=== PATIENT | female | born 1975 | race Caucasian/White ===

== ENCOUNTER 2017-12-04 15:32 | Emergency (ER) | payer SELFPAY, OTHER | END 2017-12-04 16:40 | disposition home or self-care (01) | LOC: ERS 15:32 | DX: R05 Cough (principal); G47.30 Sleep apnea, unspecified; I10 Essential (primary) hypertension; F41.9 Anxiety disorder, unspecified; F32.9 Major depressive disorder, single episode, unspecified; Z79.899 Other long term (current) drug therapy | CPT/HCPCS: 99283 ==

== ENCOUNTER 2018-04-29 10:38 | Emergency (ER) | payer SELFPAY ==
[2018-04-29 10:56] LABS: Bilirubin Negative (Negative); Blood, Urine Small (Negative); Clarity TURBID (Clear); Glucose, Urine (Dipstick) Negative (Negative); Leukocyte Large (Negative); Nitrite Negative (Negative); Protein, Urine (Dipstick) 100 mg/dL (Neg-Trace); Specific Gravity, Urine 1.023 (1.002-1.036)
[2018-04-29 10:57] LABS: Bacteria/HPF 3+ HPF (None Seen); Hyaline Casts/LPF 4-6 HYALINE CAST LPF (0-3 Hyaline); Pathc Cast-AUWi Flag 0.87 (0-2.49); Squamous Epithelial 0-3 HPF (0-3)
[2018-04-29 11:03] LABS: #Eosinphils 0.2 thou/uL (0.0-0.7); #Lymphocytes 2.4 thou/uL (1.20-3.40); #Monocytes 0.5 thou/uL (0.11-0.59); #Neutrophils 3.2 thou/uL (1.40-6.50); %Basophils 0.3 % (0.0-1.0); %Lymphocytes 37.8 % (21.0-51.0); %Monocytes 8.4 % (0.0-10.0); %Neutrophils 50.5 % (42.0-75.0); Hemoglobin 12.8 g/dL (12.0-16.0); Mean Corpuscular HGB CONC 33.2 g/dL (32.0-36.0); Mean Corpuscular Hemoglobin 29.9 pg (27.0-31.0); Mean Platelet Volume 6.5 fL (7.4-10.4); Platelet Count 354 thou/uL (130-400); RBC Distribution Width 12.5 % (11.5-14.5); Red Blood Cell (RBC) Count 4.28 mill/uL (4.20-5.40); White Blood Cell (WBC) Count 6.2 thou/uL (4.8-10.8)
== END 2018-04-29 11:27 | disposition home or self-care (01) ==
LOC: ERS 10:38
DX: N30.00 Acute cystitis without hematuria (principal); G47.30 Sleep apnea, unspecified; I10 Essential (primary) hypertension; F41.9 Anxiety disorder, unspecified; F32.9 Major depressive disorder, single episode, unspecified; Z79.899 Other long term (current) drug therapy
CPT/HCPCS: 36415; 81003; 81015; 85025; 87077; 87086; 87186; 99283

== ENCOUNTER 2018-11-12 15:37 | Emergency (ER) | payer SELFPAY ==
--- NOTE | 2018-11-12 17:19 | RAD ---
RIGHT FOOT THREE VIEWS: 11/12/18 HISTORY: Knot on plantar aspect of the foot onset yesterday. Postoperative changes are seen of the first metatarsal head. Surgical screw is present in this region . I do not see any signs of any acute bony change. The lateral sesamoid on these views appears to hav e partially fused to the metatarsal head. All these changes appear chronic. IMPRESSION: Postoperative changes of the first metatarsal. No definite acute change. POS: TYLER
== END 2018-11-12 17:48 | disposition home or self-care (01) ==
LOC: ERS 15:37
DX: L84 Corns and callosities (principal); M79.671 Pain in right foot; G47.30 Sleep apnea, unspecified; I10 Essential (primary) hypertension; F41.9 Anxiety disorder, unspecified; F32.9 Major depressive disorder, single episode, unspecified

== ENCOUNTER 2019-09-08 11:35 | Emergency (ER) | payer SELFPAY ==
--- NOTE | 2019-09-08 12:19 | RAD ---
XR Foot Lt 3 View STANDARD: 09/08/2019 11:55 AM CLINICAL INDICATION: Pain COMPARISON: None. FINDINGS: There is persistent hyperextension of the MTP joints and flexion of the digits, which limits visualiz ation. Fracture:No fracture. Arthropathy:Scattered mild degenerative change. Chronic malalignment of the first ray. Incidental findings:Postoperative screw at the distal first metatarsal. IMPRESSION: 1. No acute osseous abnormality.
== END 2019-09-08 12:55 | disposition home or self-care (01) ==
LOC: ERS 11:35
DX: S90.32XA Contusion of left foot, initial encounter (principal); I10 Essential (primary) hypertension; G47.30 Sleep apnea, unspecified; F41.9 Anxiety disorder, unspecified; F32.9 Major depressive disorder, single episode, unspecified; Z79.899 Other long term (current) drug therapy; W18.2XXA Fall in (into) shower or empty bathtub, initial encounter
CPT/HCPCS: 93005

== ENCOUNTER 2019-09-30 18:51 | Emergency (ER) | payer SELFPAY ==
[2019-09-30 19:11] LABS: Clarity Clear (Clear); Glucose, Urine (Dipstick) Normal (Negative); Leukocyte 500 Leu/uL (Negative); Nitrite Negative (Negative); Protein, Urine (Dipstick) 30 mg/dL (Neg-Trace); Urobilinogen 6 mg/dL (Less than 2)
[2019-09-30 19:12] LABS: Bilirubin Negative (Negative); Blood, Urine 2+ (Negative); RBC/HPF 21-50 HPF (0-3); WBC/HPF Greater than 50 HPF (0-3)
[2019-09-30 19:13] LABS: Bacteria/HPF 1+ HPF (None Seen)
== END 2019-09-30 19:30 | disposition home or self-care (01) ==
LOC: ERS 18:51
DX: N30.01 Acute cystitis with hematuria (principal); G47.30 Sleep apnea, unspecified; I10 Essential (primary) hypertension; F41.9 Anxiety disorder, unspecified; F32.9 Major depressive disorder, single episode, unspecified; Z79.899 Other long term (current) drug therapy
CPT/HCPCS: 81003; 81015; 87077; 87086; 99283

== ENCOUNTER 2019-10-11 15:21 | Emergency (ER) | payer SELFPAY ==
[2019-10-11 16:27] LABS: Bilirubin Negative (Negative); Blood, Urine 2+ (Negative); Clarity Turbid (Clear); Glucose, Urine (Dipstick) Normal (Negative); Leukocyte 500 Leu/uL (Negative); Nitrite Negative (Negative); Protein, Urine (Dipstick) 50 mg/dL (Neg-Trace); Urobilinogen 3 mg/dL (Less than 2); WBC/HPF Greater than 50 HPF (0-3)
[2019-10-11 16:42] LABS: Bacteria/HPF Rare-Few HPF (None Seen)
[2019-10-11 16:43] LABS: Mucous/LPF 2+ LPF (<2+)
[2019-10-11 16:44] LABS: Urine Culture Reflex No No
== END 2019-10-11 20:16 | disposition left against medical advice (07) ==
LOC: ERS 15:21
DX: Z53.21 Procedure and treatment not carried out due to patient leaving prior to being seen by health care provider (principal)
CPT/HCPCS: 81001

== ENCOUNTER 2019-10-15 07:49 | Emergency (ER) | payer SELFPAY ==
[2019-10-15 08:53] LABS: Bacteria/HPF None Seen HPF (None Seen); Bilirubin Negative (Negative); Blood, Urine 2+ (Negative); Clarity Turbid (Clear); Glucose, Urine (Dipstick) Normal (Negative); Leukocyte 500 Leu/uL (Negative); Nitrite Negative (Negative); Protein, Urine (Dipstick) 50 mg/dL (Neg-Trace); RBC/HPF 21-50 HPF (0-3); Squamous Epithelial 0-3 HPF (0-3); Urobilinogen Normal mg/dL (Less than 2); WBC/HPF Greater than 50 HPF (0-3)
== END 2019-10-15 09:17 | disposition home or self-care (01) ==
LOC: ERS 07:49
DX: N30.01 Acute cystitis with hematuria (principal); F32.9 Major depressive disorder, single episode, unspecified
CPT/HCPCS: 81003; 81015; 87077; 87086; 99283

== ENCOUNTER 2019-11-08 11:22 | Emergency (ER) | payer SELFPAY ==
[2019-11-08 11:52] LABS: Bilirubin Negative (Negative); Blood, Urine Large (Negative); Glucose, Urine (Dipstick) Negative (Negative); Leukocyte Trace (Negative); Nitrite Negative (Negative); Protein, Urine (Dipstick) 100 mg/dL (Neg-Trace); Urobilinogen 0.2 mg/dL (Less than 2)
[2019-11-08 11:54] LABS: Clarity Turbid (Clear)
[2019-11-08 12:05] LABS: RBC/HPF Greater than 50 HPF (0-3)
[2019-11-08 12:06] LABS: Bacteria/HPF None Seen HPF (None Seen); Squamous Epithelial 0-3 HPF (0-3)
[2019-11-08] MEDS ORDERED: Lidocaine 1% PF 5 ML VIAL ONE (13:14)
[2019-11-08] MEDS ORDERED: cefTRIAXone\\ROCEPHIN 1 GM VIAL ONE (13:14)
== END 2019-11-08 13:30 | disposition home or self-care (01) ==
LOC: ERS 11:22
DX: R30.0 Dysuria (principal); R31.9 Hematuria, unspecified; F41.9 Anxiety disorder, unspecified; F32.9 Major depressive disorder, single episode, unspecified
CPT/HCPCS: 81003; 81015; 87086; 96372; 99283; J0696; J2001

== ENCOUNTER 2019-11-30 14:47 | Emergency (ER) | payer SELFPAY ==
[2019-11-30] MEDS ORDERED: Dexamethasone 4 MG TAB ONE (15:24)
--- NOTE | 2019-11-30 16:12 | RAD ---
TWO VIEWS CHEST: 11/30/19 PROVIDED CLINICAL HISTORY: Cough. FINDINGS: Comparison 07/07/13. The cardiac and mediastinal silhouette is within normal limits. No focal consoli dation, pleural fluid or pneumothorax apparent. IMPRESSION: No evidence for an acute cardiopulmonary process. POS: TPC
== END 2019-11-30 16:15 | disposition home or self-care (01) ==
LOC: ERS 14:47
DX: J20.9 Acute bronchitis, unspecified (principal); F41.9 Anxiety disorder, unspecified; F32.9 Major depressive disorder, single episode, unspecified
CPT/HCPCS: 71046; 87804; 94640; J7620; J8540

== ENCOUNTER 2019-12-21 05:22 | Emergency (ER) | payer SELFPAY | END 2019-12-21 06:11 | disposition home or self-care (01) | LOC: ERS 05:22 | DX: F15.951 Other stimulant use, unspecified with stimulant-induced psychotic disorder with hallucinations (principal); F41.9 Anxiety disorder, unspecified; F32.9 Major depressive disorder, single episode, unspecified; F17.210 Nicotine dependence, cigarettes, uncomplicated; Z79.899 Other long term (current) drug therapy | CPT/HCPCS: 99281 ==

== ENCOUNTER 2020-01-30 22:31 | Emergency (ER) | payer SELFPAY ==
--- NOTE | 2020-01-31 07:52 | RAD ---
4 views of lumbar spine: 01/31/2020 COMPARISON: None HISTORY: Back pain, history of prior lumbar spine surgery FINDINGS: Bilateral pedicle screws are present at the L5 and S1 levels with vertically oriented inter locking rods. There is approximately 9 mm of anterolisthesis of L5 on S1. There is disc space narrowing and degener ative endplate change at the L5-S1 level as well. No evidence for hardware failure. No acute fracture or evidence of dislocation is seen. IMPRESSION: Postoperative and degenerative change within the lumbar spine as detailed above.
== END 2020-01-31 01:45 | disposition home or self-care (01) ==
LOC: ERS 22:31
DX: M54.5 Low back pain (principal); K59.00 Constipation, unspecified; F41.9 Anxiety disorder, unspecified; F32.9 Major depressive disorder, single episode, unspecified
CPT/HCPCS: 72100

== ENCOUNTER 2020-03-06 18:51 | Emergency (ER) | payer SELFPAY ==
[2020-03-06] MEDS ORDERED: Ketorolac Tromethamine 30 MG/ML VIAL ONE (19:13)
--- NOTE | 2020-03-06 21:08 | RAD ---
LUMBAR SPINE RADIOGRAPHS THREE VIEWS: 03/06/20 PROVIDED CLINICAL HISTORY: Injury. FINDINGS: Comparison 01/31/20. Five nonribbearing lumbar type vertebral bones are redemonstrated. Lumbar alignment is unchanged. Lupillo tebral body heights appear preserved. There is cortical irregularity involving the anterior margin of the L2 vertebral bodies suspicious for fracture. Postoperative changes at L5-S1 is redemonstrated, a ppearing similar. IMPRESSION: Findings suspicious for minimal end plate compression fracture involving L2. POS: ELIO
== END 2020-03-06 21:32 | disposition home or self-care (01) ==
LOC: ERS 18:51
DX: M54.5 Low back pain (principal); F41.9 Anxiety disorder, unspecified; F32.9 Major depressive disorder, single episode, unspecified; Z79.899 Other long term (current) drug therapy; W18.30XA Fall on same level, unspecified, initial encounter
CPT/HCPCS: 72100; 96372; J1885

== ENCOUNTER 2020-05-30 18:15 | Emergency (ER) | payer SELFPAY ==
[2020-05-30] MEDS ORDERED: Ketorolac Tromethamine 30 MG/ML VIAL ONE (18:27)
== END 2020-05-30 18:45 | disposition home or self-care (01) ==
LOC: ERS 18:15
DX: K04.7 Periapical abscess without sinus (principal); K02.9 Dental caries, unspecified; F41.9 Anxiety disorder, unspecified; F32.9 Major depressive disorder, single episode, unspecified; Z79.899 Other long term (current) drug therapy
CPT/HCPCS: 96372; 99282; J1885

== ENCOUNTER 2020-07-15 11:19 | Emergency (ER) | payer SELFPAY ==
[2020-07-15 12:05] LABS: Bacteria/HPF 4+ HPF (None Seen); Bilirubin Negative (Negative); Blood, Urine Trace (Negative); Clarity Turbid (Clear); Glucose, Urine (Dipstick) Normal (Negative); Ketone, Urine Trace mg/dL (Negative); Leukocyte 500 Leu/uL (Negative); Nitrite 2+ (Negative); Protein, Urine (Dipstick) 20 mg/dL (Neg-Trace); Specific Gravity, Urine 1.029 (1.002-1.036); Squamous Epithelial 0-3 HPF (0-3); Urobilinogen Normal mg/dL (Less than 2); WBC/HPF Greater than 50 HPF (0-3)
== END 2020-07-15 12:36 | disposition home or self-care (01) ==
LOC: ERS 11:19
DX: N39.0 Urinary tract infection, site not specified (principal); F41.9 Anxiety disorder, unspecified; F32.9 Major depressive disorder, single episode, unspecified; Z79.899 Other long term (current) drug therapy
CPT/HCPCS: 81003; 81015; 99283

== ENCOUNTER 2020-07-25 08:42 | Observation (INO) | payer BC, OTHER, SELFPAY ==
[2020-07-25 10:11] LABS: #Basophils 0.1 thou/uL (0.0-0.2); #Eosinphils 0.1 thou/uL (0.0-0.7); #Lymphocytes 2.3 thou/uL (1.20-3.40); #Monocytes 0.7 thou/uL (0.11-0.59); #Neutrophils 5.9 thou/uL (1.40-6.50); %Basophils 0.7 % (0.0-1.0); %Eosinophils 1.4 % (0.0-10.0); %Lymphocytes 25.8 % (21.0-51.0); %Monocytes 7.2 % (0.0-10.0); %Neutrophils 64.9 % (42.0-75.0); Hemoglobin 12.6 g/dL (12.0-16.0); Mean Corpuscular HGB CONC 34.1 g/dL (32.0-36.0); Mean Corpuscular Hemoglobin 31.4 pg (27.0-31.0); Mean Corpuscular Volume 91.8 fL (78.0-98.0); Mean Platelet Volume 6.9 fL (7.4-10.4); Platelet Count 372 thou/uL (130-400); RBC Distribution Width 12.3 % (11.5-14.5); Red Blood Cell (RBC) Count 4.02 mill/uL (4.20-5.40); White Blood Cell (WBC) Count 9.1 thou/uL (4.8-10.8)
[2020-07-25 10:27] LABS: ALT (SGPT) 47 U/L (8-55); AST (SGOT) 49 U/L (5-34); Albumin 4.4 g/dL (3.5-5.0); Alkaline Phosphatase 74 U/L (40-110); Anion Gap 13 mmol/L (10-20); BUN (Urea Nitrogen) 13 mg/dL (7.0-18.7); Bilirubin, Total 0.7 mg/dL (0.2-1.2); Calc. Creatinine Clearance 0 mL/min (70-130); Calcium 9.4 mg/dL (7.8-10.44); Carbon Dioxide 26 mmol/L (22-29); Chloride 104 mmol/L (98-107); Estimated GFR-MDRD 48; Globulin 2.4 g/dL (2.4-3.5); Glucose 95 mg/dL (70-105); Potassium 3.5 mmol/L (3.5-5.1); Protein, Total 6.8 g/dL (6.0-8.3); Sodium 139 mmol/L (136-145)
[2020-07-25 10:32] LABS: Acetaminophen Less than 6.0 mcg/mL (10.0-30.0); Alcohol Less than 10 mg/dL (Less than 10); Salicylate Less than 8.0 mg/dL (15.0-30.0)
--- NOTE | 2020-07-25 10:43 | CT ---
CT BRAIN WITHOUT CONTRAST: HISTORY: Level II stroke. FINDINGS: No evidence of acute infarct, hemorrhage, midline shift, or abnormal extraaxial fluid collection is s een. The ventricular size is normal and the basilar cisterns patent. The bony calvarium is intact. The visualized paranasal sinuses and mastoid air cells are well aerated. IMPRESSION: No CT evidence of acute intracranial process. Discussed over the telephone with Kameron Francois of the emergency room at 10:35 a.m. CODE CR POS: OFF
[2020-07-25 10:56] LABS: CKMB 5.1 ng/mL (0-6.6)
--- NOTE | 2020-07-25 11:20 | CT ---
CTA HEAD WITH IV CONTRAST AND 3D POSTPROCESSING CTA NECK WITH IV CONTRAST AND 3D POSTPROCESSING: Date: 07/25/2020 HISTORY: Level II stroke. Speech difficulties. FINDINGS/IMPRESSION: There is good flow in the vertebrobasilar and carotid artery systems in the neck and head without lavern dence of significant stenosis, major branch occlusion, or aneurysm formation. Discussed over the telephone with Rose Raymundo in the ER at 1109 hours. CODE CR. POS: OFF
[2020-07-25 11:31] LABS: Bacteria/HPF 4+ HPF (None Seen); Bilirubin Negative (Negative); Clarity Clear (Clear); Glucose, Urine (Dipstick) Normal (Negative); Ketone, Urine Negative (Negative); Leukocyte 250 Leu/uL (Negative); Nitrite 2+ (Negative); Protein, Urine (Dipstick) 30 mg/dL (Neg-Trace); Squamous Epithelial 0-3 HPF (0-3); Urobilinogen 3 mg/dL (Less than 2); WBC/HPF 21-50 HPF (0-3)
[2020-07-25 11:34] LABS: Blood, Urine Trace (Negative)
[2020-07-25 11:42] LABS: Amphetamine Detected (NotDetected); Barbiturates Screen Not Detected (NotDetected); Benzodiazepine Screen Not Detected (NotDetected); Cocaine Metabolite Screen Not Detected (NotDetected); Medtox Control Line Valid? VALID (VALID); Medtox Reader # READER 1; Methadone Not Detected (NotDetected); Methamphetamine Detected (NotDetected); Opiate Screen Not Detected (NotDetected); Oxycodone Screen Not Detected (NotDetected); Phencyclidine (PCP) Not Detected (NotDetected); THC/Cannabinoid Screen Not Detected (NotDetected); Tricyclic Screen Not Detected (NotDetected)
[2020-07-25] MEDS ORDERED: cefTRIAXone\\ROCEPHIN 1 GM VIAL ONE (12:28)
[2020-07-25] MEDS ORDERED: Lorazepam 2 MG/ML VIAL ONE (12:46)
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
[2020-07-25] MEDS ORDERED: Iopamidol-370 76% 500 ML 1 ML ONE (13:26)
[2020-07-25] MEDS ORDERED: Lactated Ringer's 1,000 ML IV SCH (14:00)
[2020-07-25] MEDS ORDERED: Calcium Carbonate 500 MG ChewTAB PO PRN (14:33)
[2020-07-25] MEDS ORDERED: Acetaminophen 325 MG TAB PO PRN (14:33)
[2020-07-25] MEDS ORDERED: Ondansetron ODT 4 MG TAB PO PRN (14:33)
--- NOTE | 2020-07-25 14:44 | PDOC.FPRHP ---
- History of Present Illness Chief Complaint: AMS History of Present Illness: 45F presents to the ED with c/o AMS per her daughter. Pt also reports difficulty speaking as she states that her tongue feels thick. Pt reports hx of meth use, last used last night. States she only took a little, but was hitting meth from 10pm to 5am. Patient reported to nurse she took 4 or 5 "hits" of meth. Denies other drug or alcohol use. Pt denies any hx of CVA or other medical problems. Patient states that she does have dysuria, and urinary frequency, denies hematuria. Denies chest pain, shortness of breath, nausea and vomiting. ED Course: given 1gm ativan in ED, ceftriaxone in ED - Allergies/Adverse Reactions Allergies Allergy/AdvReac Type Severity Reaction Status Date / Time No Known Allergies Allergy Unverified 07/25/20 14:17 - History PMHx: Anxiety and Depression PSHx: Csection x2, hysterectomy back surgery FHx: non-significant Social: no cigarette smoking, reports meth use but no other drugs, no alcohol - Review of Systems General: denies: fever/chills, weight/appetite/sleep changes Eyes: denies: eye pain, vision changes Respiratory: denies: cough, congestion, shortness of breath Cardiovascular: denies: chest pain, palpitation Gastrointestinal: denies: nausea, vomiting, diarrhea Genitourinary: reports: dysuria, polyuria Skin: denies: rashes Musculoskeletal: reports: pain (chronic pain in back and feet) Neurological: reports: other (slurred speech) Psychological: reports: anxiety, depression - Vital signs BP: 134/75, HR 94, RR 18, 98.2F, 98 on RA, Wt 63.5kg - Physical Exam Constitutional: NAD -Constitutional: small stature, agitated, restless HEENT: normocephalic and atraumatic, other (pupils dilated) Neck: supple, FROM Heart: RRR, no murmurs/rubs/gallops Lungs: CTAB, no respiratory distress Abdomen: soft, non-tender, bowel sounds present Musculoskeletal: normal structure, normal tone Neurological: no focal deficit, CN II-XII intact, normal sensation -Neurological: slurred speech, sleepy Skin: no rash/lesions Heme/Lymphatic: no unusual bruising or bleeding, no purpura Additional comment: A&O x 3 FMR H&P: Results - Labs Result Diagrams: 07/25/20 10:00 07/25/20 10:00 Lab results: WBC 9.1 thou/uL (4.8-10.8) 07/25/20 10:00 Hgb 12.6 g/dL (12.0-16.0) 07/25/20 10:00 Hct 36.9 % (36.0-47.0) 07/25/20 10:00 MCV 91.8 fL (78.0-98.0) 07/25/20 10:00 Plt Count 372 thou/uL (130-400) 07/25/20 10:00 Neutrophils % 64.9 % (42.0-75.0) 07/25/20 10:00 Sodium 139 mmol/L (136-145) 07/25/20 10:00 Potassium 3.5 mmol/L (3.5-5.1) 07/25/20 10:00 Chloride 104 mmol/L (98-107) 07/25/20 10:00 Carbon Dioxide 26 mmol/L (22-29) 07/25/20 10:00 BUN 13 mg/dL (7.0-18.7) 07/25/20 10:00 Creatinine 1.21 mg/dL (0.6-1.1) H 07/25/20 10:00 Glucose 95 mg/dL (70-105) 07/25/20 10:00 Calcium 9.4 mg/dL (7.8-10.44) 07/25/20 10:00 Total Bilirubin 0.7 mg/dL (0.2-1.2) 07/25/20 10:00 AST 49 U/L (5-34) H 07/25/20 10:00 ALT 47 U/L (8-55) 07/25/20 10:00 Alkaline Phosphatase 74 U/L (40-110) 07/25/20 10:00 Ammonia 22 umol/L (18-72) 07/25/20 11:12 CK-MB (CK-2) 5.1 ng/mL (0-6.6) 07/25/20 10:00 Serum Total Protein 6.8 g/dL (6.0-8.3) 07/25/20 10:00 Albumin 4.4 g/dL (3.5-5.0) 07/25/20 10:00 Urine Ketones Negative mg/dL (Negative) 07/25/20 11:08 Urine Blood Trace (Negative) A 07/25/20 11:08 Urine Nitrite 2+ (Negative) A 07/25/20 11:08 Ur Leukocyte Esterase 250 Cynthia/uL (Negative) A 07/25/20 11:08 Urine RBC 7-10 HPF (0-3) A 07/25/20 11:08 Urine WBC 21-50 HPF (0-3) A 07/25/20 11:08 Ur Squamous Epith Cells 0-3 HPF (0-3) 07/25/20 11:08 Urine Bacteria 4+ HPF (None Seen) A 07/25/20 11:08 - EKG Interpretation EKG: SR 85 - Radiology Interpretation CT scan - head Status: report reviewed by me (no acute intracranial process) CT scan - chest Status: report reviewed by me (CTA showed no acute cradiopulmonary process) FMR H&P: A/P - Plan Acute Toxic Encephalopathy 2/2 Methamphetamines Multiple hits of meth reported overnight UDS + methamphetamines, ETOH, ASA negative CTA and CT negative Neuro exam showed slurred speech, otherwise no focal deficits CN II-XII intact - will monitor for improvements of mental status/slurred speech - Hepatitis panel, RPR, HIV pending - admit stroke/obs UTI +dysruia, +frequency UA: UA 4+ bacteria, WBC, LE, nitrites, trace blood Ceftriaxone started in the ED - will continue - mIVFs @ 120 - UCx ordered Elevated Troponins, likely 2/2 Drug Toxicity Trops negative x2 - will continue to trend PCP: None CC Diet: Regular after bedside swallow Code: Full VTE: SCDs FMR H&P: Upper Level - Pertinent history 45yo F with h/o anxiety, depression, and methamphetamine abuse presents for AMS by daughter. Patient is unable to provide much history due to mentation. States she uses meth but wont provide details. Denies any CP, SOB, n/v, abd klein, fever /chills. Per ED documentation, has been living with daughter but told PD she took 4-5 hits of meth prior to presentation. In ED, pt was given 1L NS, Rocephin, and 1mg Ativan. CT Head and CTA head and neck negative. UDS + meth. UA 4+ bacteria, WBC, LE, nitrites, trace blood. Cr 1.2. Trop 0.035. Admitted for acute metabolic encaphlopathy, elevated trop, and UTI. - Pertinent findings See internet developer note for full PMHx/PMSx/Social/Family history. BP: 133/95, Pulse: 102, Resp: 20, Temp: 98.4 (Oral), Pain: 0, O2 sat: 99 on ( Room Air), General: Agitated, restless, does not make eye contact HEENT: Dilated pupils, EMOI, PERRLA, trachea midline Cards: RRR without murmur Pulm: CTAB GI: Soft, nontender, nondistended, normoactive bowel sounds Neuro: 5/5 strength throughout, normal sensation, slurred/muffled speech, CN II- XII intact - Plan Date/Time: 07/25/20 1443 I, Anthony Vargas MD, have evaluated this patient and agree with findings/plan as outlined by internet developer resident. Pertinent changes/additions are listed here. 45yo F with h/o anxiety, depression, and methamphetamine abuse presents for acute toxic encephalopathy 2/2 methamphetamine # Acute toxic encephalopathy 2/2 methamphetamine -CTA/CT negative, neuro exam unremarkable other than slurred speech which is suspected 2/2 acute intoxication, will monitor -UDS + methamphetamine. EtOH/APAP/ASA negative. -Admitted to ED staff used meth recently -History of meth abuse -Will monitor mental status # UTI -UA: UA 4+ bacteria, WBC, LE, nitrites, trace blood. -s/p Rocephin in ED, will cont and follow UCx #Elevated trop -Suspected 2/2 drug abuse, no EKG changes or chest pain -Trop negative x2 See internet developer note for management of chronic medical conditions. PCP: None CC IVF: LR @ 120cc/hr Diet: Regular after bedside swallow Code: Full VTE: SCDs Dispo: Admit to tele obs for acute toxic encephalopathy 2/2 acute methamphetamine intoxication. Will monitor and IVF. Anticipate LOS <48hrs. Addendum - Attending - Attending Attestation Date/Time: 07/25/20 5811 I personally evaluated the patient and discussed the management with Dr. Franco/ Sam. I agree with the History, Examination, Assessment and Plan documented above with any addition or exceptions noted below. Patient here with toxic encephalopathy 2/2 meth abuse. Her mentation has improved. Will continue to monitor vitals and labs and ensure her symptoms resolve. She has no focal findings to suggest central pathology at this time.
[2020-07-25] MEDS: Lactated Ringer's 1,000 ML IV SCH (16:32)
[2020-07-25 16:41] VITALS: BMI 20.7
[2020-07-25 17:02] LABS: Troponin I 0.027 ng/mL (< 0.028)
[2020-07-25 17:16] LABS: HBSAB Concentration Less than 8.00 mIU/mL; HIV (1/2) Antibody/Antigen Non-Reactive (NonReactive); HIV 1/2 INDEX 0.12 S/CO (<1.00); Hep B Surf AB Non-Reactive (NonReactive); Hep C IgG Ab Non-Reactive (NonReactive); Hep C Index 0.06 S/CO (0-0.79)
[2020-07-25 17:23] LABS: Syphilis Antibody Nonreactive (Nonreactive); Syphilis Antibody Index 0.03 S/CO (<1.00 Non-Reactive)
[2020-07-26] MEDS: Lactated Ringer's 1,000 ML IV SCH ×2 (01:15→11:28)
--- NOTE | 2020-07-26 05:20 | PDOC.FM ---
- Subjective Subjective: Patient is resting comfortably in bed. States that she feels much better and her speech is back to normal. No other complaints. - Objective MAR Reviewed: Yes Vital Signs & Weight: Vital Signs (12 hours) Temp Pulse Resp BP Pulse Ox 07/26/20 04:15 97.6 F 62 14 119/70 100 07/25/20 23:37 97.7 F 57 L 14 105/61 99 07/25/20 20:57 97.8 F 95 14 141/80 H 99 07/25/20 18:46 96 Weight Weight 63.503 kg I&O: 07/24/20 07/25/20 07/26/20 06:59 06:59 06:59 Intake Total 120 Balance 120 Result Diagrams: 07/25/20 10:00 07/25/20 10:00 Phys Exam - Physical Examination Constitutional: NAD thin stature HEENT: PERRLA, moist MMs poor denitition Respiratory: no wheezing, clear to auscultation bilateral Cardiovascular: RRR, no significant murmur Gastrointestinal: soft, non-tender, positive bowel sounds Musculoskeletal: no edema, pulses present Neurological: non-focal, normal sensation, moves all 4 limbs Psychiatric: A&O x 3 Skin: no rash Dx/Plan (1) Toxic encephalopathy Code(s): G92 - TOXIC ENCEPHALOPATHY Status: Acute (2) UTI (urinary tract infection) Status: Acute - Plan Plan: Acute Toxic Encephalopathy 2/2 Methamphetamines Multiple hits of meth reported overnight UDS + methamphetamines, ETOH, ASA negative CTA and CT negative Neuro exam showed slurred speech, otherwise no focal deficits CN II-XII intact Hepatitis panel, RPR, HIV: neg Hep B Antibody nonreactive - slurred speech improved - will vaccinate for Hep B UTI +dysruia, +frequency UA: UA 4+ bacteria, WBC, LE, nitrites, trace blood 1 dose Rocephin adequate treatment - mIVFs @ 120 - UCx ordered, will call if additional abx necessary Elevated Troponins, likely 2/2 Drug Toxicity Trops negative x3 PCP: None CC Diet: Regular Diet Code: Full VTE: SCDs Addendum - Attending - Attending Attestation Date/Time: 07/26/20 1106 I personally evaluated the patient and discussed the management with Dr. Franco. I agree with the History, Examination, Assessment and Plan documented above with any addition or exceptions noted below. Patient back to baseline. S/p encephalopathy from Meth intoxication. Stable for discharge. S/p treatment for UTI.
[2020-07-26] MEDS ORDERED: Recombivax (HEP-B) 5 MCG/0.5 ML VIAL IM ONE (08:34)
[2020-07-26] MEDS ORDERED: Gentamicin Sulfate 100 MG in Premix Bag 1 BAG IVPB SCH (10:00)
[2020-07-26 12:21] VITALS: BP 126/74; TEMP 98.3
[2020-07-26] MEDS ORDERED: cefTRIAXone\\ROCEPHIN 1 GM in Sodium Chloride 0.9% 100 ML IVPB SCH (13:00)
--- NOTE | 2020-07-27 02:03 | DIS ---
DATE OF ADMISSION: 07/25/2020 DATE OF DISCHARGE: 07/26/2020 RESIDENT: Erika Franco DO ADMITTING ATTENDING: Nilesh Cope MD DISCHARGE ATTENDING: Nilesh Cope MD CONSULTS: None. PROCEDURES: None. PRIMARY DIAGNOSIS: Acute toxic encephalopathy secondary to methamphetamine abuse. SECONDARY DIAGNOSES: Urinary tract infection, uncomplicated; elevated troponins likely 2/2 methamphetamine abuse DISCHARGE MEDICATIONS: None. DISCONTINUED MEDICATIONS: None. HISTORY OF PRESENT ILLNESS/HOSPITAL COURSE: Patient is a 45-year-old female with no past medical history who was brought to the ED by her daughter due to altered mental status 2/2 meth abuse. Patient reported difficulty speaking stating that her tongue feels thick and reported dysuria and urinary frequency. She reported using meth from 10pm-5am, 4-5 hits. The patient has dilated pupils and slurred speech, but otherwise was A and O x3. Her UDS was positive for methamphetamines. UA: +leuk esterase, +nitrites, WBCs. Head/neck CTA and Brain CT negative. In the ED, she was given 1 g of Ativan and was given 1 g or Rocephin. Patient was admitted to stroke observation for monitoring of her mental status and slurred speech. Patient was started on maintenance IV fluids and a urine culture was ordered for her UTI. She had initial elevated troponin at 0.035 which downtrended for the next following 2 troponins. Hepatitis panel, RPR, and HIV negative. Hepatitis B nonreactive, so patient received a hepatitis B vaccine. For her UTI, in addition to the 1g of Rocephin given day 1, patient was given 100mg/ml Gentamycin IVP prior to discharge. We will follow up on urine cultures. Discussed drug cessation and patient was discharged the following morning with improved speech and mentation. DISCHARGE INSTRUCTIONS: 1. Location: home 2. Diet: regular 3. Activity: ad carlos 4. Follow up: Follow up with your PCP in 7-14 days. Job ID: [id number] [facility]
== END 2020-07-26 13:10 | disposition home or self-care (01) ==
LOC: ERS 08:42 → 2SE 16:07
PROVIDERS: ADMIT Student in an Organized Health Care Education/Training Program; ATTEND Student in an Organized Health Care Education/Training Program
DX: T43.622A Poisoning by amphetamines, intentional self-harm, initial encounter (principal); F15.129 Other stimulant abuse with intoxication, unspecified; G92 Toxic encephalopathy; N39.0 Urinary tract infection, site not specified; B96.20 Unspecified Escherichia coli [E. coli] as the cause of diseases classified elsewhere; F41.9 Anxiety disorder, unspecified; F32.9 Major depressive disorder, single episode, unspecified; Z79.899 Other long term (current) drug therapy
CPT/HCPCS: 36415; 36416; 70450; 70496; 70498; 80053; 80306; 80307; 81003; 81015; 82140; 82553; 84443; 84484; 85025; 86706; 86780; 86803; 87077; 87086; 87186; 87389; 90746; 93005; 96361; 96365; 96367; 96375; G0378; J0696; J1580; J2060; Q9967

== ENCOUNTER 2020-11-04 15:12 | Emergency (ER) | payer SELFPAY ==
[2020-11-04 16:03] LABS: Bilirubin Negative (Negative); Blood, Urine Trace (Negative); Clarity Turbid (Clear); Glucose, Urine (Dipstick) Normal (Negative); Ketone, Urine Negative (Negative); Leukocyte 500 Leu/uL (Negative); Nitrite Negative (Negative); Protein, Urine (Dipstick) 20 mg/dL (Neg-Trace); Specific Gravity, Urine 1.033 (1.002-1.036); Squamous Epithelial 0-3 HPF (0-3); Transitional Epithelial 0-3 HPF (None Seen); Urobilinogen 3 mg/dL (Less than 2); WBC/HPF Greater than 50 HPF (0-3)
[2020-11-04 16:04] LABS: Bacteria/HPF 1+ HPF (None Seen)
== END 2020-11-04 16:40 | disposition home or self-care (01) ==
LOC: ERS 15:12
DX: N30.01 Acute cystitis with hematuria (principal)
CPT/HCPCS: 81003; 81015; 99283

== ENCOUNTER 2020-11-27 09:39 | Emergency (ER) | payer SELFPAY ==
[2020-11-27 10:14] LABS: Bilirubin Negative (Negative); Blood, Urine Trace (Negative); Clarity Turbid (Clear); Glucose, Urine (Dipstick) Normal (Negative); Ketone, Urine Negative (Negative); Leukocyte 500 Leu/uL (Negative); Nitrite 2+ (Negative); Protein, Urine (Dipstick) 20 mg/dL (Neg-Trace); RBC/HPF None Seen HPF (0-3); Specific Gravity, Urine 1.022 (1.002-1.036); Squamous Epithelial 0-3 HPF (0-3); Transitional Epithelial 0-3 HPF (None Seen); Urobilinogen Normal mg/dL (Less than 2); WBC/HPF Greater than 50 HPF (0-3); pH, Urine 6.5 (5.0-9.0)
[2020-11-27 10:34] LABS: Bacteria/HPF 4+ HPF (None Seen)
== END 2020-11-27 10:43 | disposition home or self-care (01) ==
LOC: ERS 09:39
DX: N39.0 Urinary tract infection, site not specified (principal); F32.9 Major depressive disorder, single episode, unspecified; F41.9 Anxiety disorder, unspecified; Z79.899 Other long term (current) drug therapy
CPT/HCPCS: 81003; 81015; 87086; 87186; 99283

== ENCOUNTER 2021-01-03 02:26 | Emergency (ER) | payer SELFPAY ==
[2021-01-03 03:36] LABS: Amphetamine Detected (NotDetected); Barbiturates Screen Not Detected (NotDetected); Benzodiazepine Screen Not Detected (NotDetected); Cocaine Metabolite Screen Not Detected (NotDetected); Medtox Control Line Valid? VALID (VALID); Medtox Reader # READER 4; Methadone Not Detected (NotDetected); Methamphetamine Detected (NotDetected); Opiate Screen Not Detected (NotDetected); Oxycodone Screen Not Detected (NotDetected); Phencyclidine (PCP) Not Detected (NotDetected); THC/Cannabinoid Screen Detected (NotDetected); Tricyclic Screen Not Detected (NotDetected)
== END 2021-01-03 04:06 | disposition home or self-care (01) ==
LOC: ERS 02:26
DX: F15.10 Other stimulant abuse, uncomplicated (principal); F17.210 Nicotine dependence, cigarettes, uncomplicated
CPT/HCPCS: 80306; 99284

== ENCOUNTER 2021-02-05 09:27 | Emergency (ER) | payer SELFPAY | END 2021-02-05 10:45 | disposition home or self-care (01) | LOC: ERS 09:27 | DX: R05 Cough (principal); R06.2 Wheezing; F17.210 Nicotine dependence, cigarettes, uncomplicated | CPT/HCPCS: 71045 ==

== ENCOUNTER 2021-02-12 11:40 | Emergency (ER) | payer SELFPAY ==
[2021-02-12 12:15] LABS: #Lymphocytes 2.1 thou/uL (1.20-3.40); #Monocytes 0.7 thou/uL (0.11-0.59); #Neutrophils 8.4 thou/uL (1.40-6.50); %Basophils 0.1 % (0.0-1.0); %Eosinophils 0.1 % (0.0-10.0); %Lymphocytes 18.5 % (21.0-51.0); %Monocytes 6.2 % (0.0-10.0); %Neutrophils 75.2 % (42.0-75.0); Hemoglobin 13.6 g/dL (12.0-16.0); Mean Corpuscular HGB CONC 33.3 g/dL (32.0-36.0); Mean Corpuscular Hemoglobin 30.6 pg (27.0-31.0); Mean Corpuscular Volume 91.8 fL (78.0-98.0); Mean Platelet Volume 6.8 fL (7.4-10.4); Platelet Count 363 thou/uL (130-400); RBC Distribution Width 12.2 % (11.5-14.5); Red Blood Cell (RBC) Count 4.45 mill/uL (4.20-5.40); White Blood Cell (WBC) Count 11.1 thou/uL (4.8-10.8)
[2021-02-12 12:44] LABS: ALT (SGPT) 12 U/L (8-55); Albumin 3.8 g/dL (3.5-5.0); Alkaline Phosphatase 57 U/L (40-110); Anion Gap 13 mmol/L (10-20); Calc. Creatinine Clearance 0 mL/min (70-130); Carbon Dioxide 25 mmol/L (22-29); Chloride 105 mmol/L (98-107); Globulin 2.3 g/dL (2.4-3.5); Glucose 117 mg/dL (70-105); Potassium 3.7 mmol/L (3.5-5.1); Protein, Total 6.1 g/dL (6.0-8.3); Sodium 139 mmol/L (136-145)
[2021-02-12 12:46] LABS: Acetaminophen Less than 6.0 mcg/mL (10.0-30.0); Alcohol Less than 10 mg/dL (Less than 10); CK (CPK) 61 U/L (29-168)
[2021-02-12 12:52] LABS: AST (SGOT) 9 U/L (5-34); BUN (Urea Nitrogen) 16 mg/dL (7.0-18.7); Bilirubin, Total 0.3 mg/dL (0.2-1.2)
[2021-02-12 12:54] LABS: Salicylate Less than 8.0 mg/dL (15.0-30.0)
[2021-02-12 13:00] LABS: Thyroid Stimulating Hormone 1.4395 uIU/mL (0.35-4.94)
[2021-02-12 13:25] LABS: BHCG - Serum Negative (NEGATIVE); Pregs Control Background? CLEAR/WHITE (CLR/WHITE); Pregs Control Bar Appear? YES (CONTROL BAR)
[2021-02-12 13:49] LABS: Bilirubin Negative (Negative); Blood, Urine Negative (Negative); Clarity Clear (Clear); Glucose, Urine (Dipstick) Normal (Negative); Ketone, Urine Negative (Negative); Leukocyte Negative Leu/uL (Negative); Nitrite Negative (Negative); Protein, Urine (Dipstick) 10 mg/dL (Neg-Trace); Specific Gravity, Urine 1.029 (1.002-1.036)
[2021-02-12 14:00] LABS: Medtox Reader # READER 1
[2021-02-12 14:01] LABS: Amphetamine Detected (NotDetected); Barbiturates Screen Not Detected (NotDetected); Benzodiazepine Screen Not Detected (NotDetected); Cocaine Metabolite Screen Not Detected (NotDetected); Medtox Control Line Valid? VALID (VALID); Methadone Not Detected (NotDetected); Methamphetamine Detected (NotDetected); Opiate Screen Not Detected (NotDetected); Oxycodone Screen Not Detected (NotDetected); Phencyclidine (PCP) Not Detected (NotDetected); THC/Cannabinoid Screen Not Detected (NotDetected); Tricyclic Screen Not Detected (NotDetected)
== END 2021-02-12 19:15 | disposition home or self-care (01) ==
LOC: ERS 11:40
DX: F15.10 Other stimulant abuse, uncomplicated (principal); F17.210 Nicotine dependence, cigarettes, uncomplicated; Z79.899 Other long term (current) drug therapy
CPT/HCPCS: 36415; 80053; 80306; 80307; 81003; 82550; 84443; 84703; 85025; 93005

== ENCOUNTER 2021-03-27 22:24 | Emergency (ER) | payer SELFPAY ==
[2021-03-27 23:48] LABS: #Basophils 0.1 thou/uL (0.0-0.2); #Eosinphils 0.8 thou/uL (0.0-0.7); #Lymphocytes 2.6 thou/uL (1.20-3.40); #Neutrophils 5.4 thou/uL (1.40-6.50); %Eosinophils 8.1 % (0.0-10.0); %Lymphocytes 26.3 % (21.0-51.0); %Monocytes 10.2 % (0.0-10.0); %Neutrophils 54.4 % (42.0-75.0); Hemoglobin 13.1 g/dL (12.0-16.0); Mean Corpuscular HGB CONC 32.3 g/dL (32.0-36.0); Mean Corpuscular Hemoglobin 30.4 pg (27.0-31.0); Mean Platelet Volume 6.8 fL (7.4-10.4); Platelet Count 411 thou/uL (130-400); RBC Distribution Width 12.6 % (11.5-14.5); White Blood Cell (WBC) Count 9.9 thou/uL (4.8-10.8)
[2021-03-28 00:09] LABS: ALT (SGPT) 17 U/L (8-55); AST (SGOT) 21 U/L (5-34); Alkaline Phosphatase 77 U/L (40-110); Anion Gap 14 mmol/L (10-20); BUN (Urea Nitrogen) 10 mg/dL (7.0-18.7); Bilirubin, Total 0.4 mg/dL (0.2-1.2); Calc. Creatinine Clearance 0 mL/min (70-130); Calcium 9.6 mg/dL (7.8-10.44); Carbon Dioxide 24 mmol/L (22-29); Chloride 108 mmol/L (98-107); Globulin 2.4 g/dL (2.4-3.5); Glucose 99 mg/dL (70-105); Protein, Total 6.4 g/dL (6.0-8.3); Sodium 142 mmol/L (136-145)
== END 2021-03-28 00:25 | disposition home or self-care (01) ==
LOC: ERS 22:24
DX: R07.89 Other chest pain (principal); F17.210 Nicotine dependence, cigarettes, uncomplicated
CPT/HCPCS: 36415; 71045; 80053; 84484; 85025; 93005

== ENCOUNTER 2021-03-28 05:17 | Emergency (ER) | payer SELFPAY | END 2021-03-28 06:50 | disposition home or self-care (01) | LOC: ERS 05:17 | DX: F41.9 Anxiety disorder, unspecified (principal); R07.89 Other chest pain; F17.210 Nicotine dependence, cigarettes, uncomplicated; Z79.899 Other long term (current) drug therapy | CPT/HCPCS: 36415; 84484; 93005 ==

== ENCOUNTER 2021-03-31 19:51 | Emergency (ER) | payer SELFPAY | END 2021-03-31 21:18 | disposition left against medical advice (07) | LOC: ERS 19:51 | DX: Z53.21 Procedure and treatment not carried out due to patient leaving prior to being seen by health care provider (principal) ==

== ENCOUNTER 2021-10-19 10:35 | Emergency (ER) | payer OTHER, SELFPAY ==
[2021-10-19] MEDS ORDERED: predniSONE 20 MG TAB ONE (11:20)
== END 2021-10-19 12:01 | disposition home or self-care (01) ==
LOC: ERS 10:35
DX: J44.9 Chronic obstructive pulmonary disease, unspecified (principal); F17.210 Nicotine dependence, cigarettes, uncomplicated
CPT/HCPCS: 71045; 94640; J7512; J7620

== ENCOUNTER 2022-04-10 11:47 | Emergency (ER) | payer SELFPAY ==
[2022-04-10] MEDS ORDERED: Iopamidol 370 76% 100 ML VIAL ONE (11:58)
[2022-04-10 12:31] LABS: #Basophils 0.1 thou/uL (0.0-0.2); #Eosinphils 0.3 thou/uL (0.0-0.7); #Lymphocytes 2.3 thou/uL (1.20-3.40); #Monocytes 0.7 thou/uL (0.11-0.59); #Neutrophils 4.6 thou/uL (1.40-6.50); %Basophils 0.8 % (0.0-1.0); %Eosinophils 4.2 % (0.0-10.0); %Lymphocytes 28.6 % (21.0-51.0); %Monocytes 8.7 % (0.0-10.0); %Neutrophils 57.7 % (42.0-75.0); Hemoglobin 12.8 g/dL (12.0-16.0); Mean Corpuscular HGB CONC 32.2 g/dL (32.0-36.0); Mean Corpuscular Volume 93.3 fL (78.0-98.0); Mean Platelet Volume 6.6 fL (7.4-10.4); Platelet Count 376 thou/uL (130-400); RBC Distribution Width 12.4 % (11.5-14.5); Red Blood Cell (RBC) Count 4.28 mill/uL (4.20-5.40)
[2022-04-10 13:00] LABS: ALT (SGPT) 23 U/L (8-55); AST (SGOT) 34 U/L (5-34); Albumin 4.3 g/dL (3.5-5.0); Alkaline Phosphatase 76 U/L (40-110); Anion Gap 12 mmol/L (10-20); BUN (Urea Nitrogen) 17 mg/dL (7.0-18.7); Bilirubin, Total 0.5 mg/dL (0.2-1.2); Calc. Creatinine Clearance 0 mL/min (70-130); Calcium 9.7 mg/dL (7.8-10.44); Carbon Dioxide 27 mmol/L (22-29); Chloride 103 mmol/L (98-107); Globulin 3.1 g/dL (2.4-3.5); Glucose 78 mg/dL (70-105); Lipase 51 U/L (8-78); Potassium 3.6 mmol/L (3.5-5.1); Protein, Total 7.4 g/dL (6.0-8.3); Sodium 138 mmol/L (136-145)
[2022-04-10 13:32] LABS: Bacteria/HPF None Seen HPF (None Seen); Bilirubin Negative (Negative); Blood, Urine Negative (Negative); Clarity Clear (Clear); Glucose, Urine (Dipstick) Normal (Negative); Ketone, Urine Negative (Negative); Leukocyte 250 Leu/uL (Negative); Nitrite Negative (Negative); Protein, Urine (Dipstick) 20 mg/dL (Neg-Trace); RBC/HPF 0-3 HPF (0-3); Specific Gravity, Urine 1.036 (1.002-1.036); Urobilinogen 3 mg/dL (Less than 2)
[2022-04-10 13:39] LABS: Pregnancy Test - Urine (BHCG) Negative (Negative); Pregu Control Background? CLEAR/WHITE (CLR/WHITE); Pregu Control Bar Appear? YES (CONTROL BAR); Specific Gravity 1.036 (1.002-1.036)
== END 2022-04-10 14:34 | disposition home or self-care (01) ==
LOC: ERS 11:47
DX: R10.13 Epigastric pain (principal); F17.210 Nicotine dependence, cigarettes, uncomplicated; Z79.899 Other long term (current) drug therapy
CPT/HCPCS: 36415; 74177; 80053; 81003; 81015; 81025; 83690; 85025

== ENCOUNTER 2022-08-03 07:36 | Emergency (ER) | payer SELFPAY ==
[2022-08-03 08:17] LABS: Bilirubin Negative (Negative); Blood, Urine Negative (Negative); Clarity Clear (Clear); Glucose, Urine (Dipstick) Normal (Negative); Ketone, Urine Negative (Negative); Leukocyte 250 Leu/uL (Negative); Nitrite Negative (Negative); Protein, Urine (Dipstick) Negative (Neg-Trace); RBC/HPF 0-3 HPF (0-3); Specific Gravity, Urine 1.024 (1.002-1.036); Squamous Epithelial 0-3 HPF (0-3); Urobilinogen Normal mg/dL (Less than 2)
[2022-08-03 08:29] LABS: Bacteria/HPF 1+ HPF (None Seen)
== END 2022-08-03 09:00 | disposition home or self-care (01) ==
LOC: ERS 07:36
DX: U07.1 COVID-19 (principal); N39.0 Urinary tract infection, site not specified
CPT/HCPCS: 81003; 81015; 99283

== ENCOUNTER 2022-09-26 16:12 | Emergency (ER) | payer SELFPAY ==
[2022-09-26 16:36] LABS: Bilirubin Negative (Negative); Blood, Urine Negative (Negative); Clarity Clear (Clear); Glucose, Urine (Dipstick) Normal (Negative); Ketone, Urine Negative (Negative); Leukocyte Negative Leu/uL (Negative); Nitrite Negative (Negative); Protein, Urine (Dipstick) Negative (Neg-Trace); Specific Gravity, Urine 1.006 (1.002-1.036); Urobilinogen Normal mg/dL (Less than 2); pH, Urine 7.5 (5.0-9.0)
[2022-09-26 16:37] LABS: Pregnancy Test - Urine (BHCG) Negative (Negative); Pregu Control Background? CLEAR/WHITE (CLR/WHITE); Pregu Control Bar Appear? YES (CONTROL BAR); Specific Gravity 1.006 (1.002-1.036)
== END 2022-09-26 16:49 | disposition home or self-care (01) ==
LOC: ERS 16:12
DX: R30.0 Dysuria (principal)
CPT/HCPCS: 81003; 81025; 99283

== ENCOUNTER 2022-11-10 14:48 | Emergency (ER) | payer SELFPAY ==
[2022-11-10 15:30] LABS: Bacteria/HPF Rare-Few HPF (None Seen); Bilirubin Negative (Negative); Blood, Urine 1+ (Negative); Clarity Turbid (Clear); Glucose, Urine (Dipstick) Normal (Negative); Ketone, Urine Trace mg/dL (Negative); Leukocyte 500 Leu/uL (Negative); Nitrite Negative (Negative); Protein, Urine (Dipstick) 100 mg/dL (Neg-Trace); Specific Gravity, Urine 1.038 (1.002-1.036); Urobilinogen 12 mg/dL (Less than 2); WBC/HPF Greater than 50 HPF (0-3); pH, Urine 6.5 (5.0-9.0)
[2022-11-10 15:41] LABS: #Eosinphils 0.3 thou/uL (0.0-0.7); #Lymphocytes 1.7 thou/uL (1.20-3.40); #Monocytes 0.7 thou/uL (0.11-0.59); #Neutrophils 4.5 thou/uL (1.40-6.50); %Basophils 0.6 % (0.0-1.0); %Eosinophils 4.6 % (0.0-10.0); %Lymphocytes 23.3 % (21.0-51.0); %Monocytes 9.6 % (0.0-10.0); %Neutrophils 61.9 % (42.0-75.0); Hemoglobin 12.1 g/dL (12.0-16.0); Mean Corpuscular HGB CONC 32.8 g/dL (32.0-36.0); Mean Corpuscular Hemoglobin 29.9 pg (27.0-31.0); Mean Corpuscular Volume 91.3 fl (78.0-98.0); Platelet Count 385 10x3/uL (130-400); RBC Distribution Width 12.2 % (11.5-14.5); Red Blood Cell (RBC) Count 4.06 mill/uL (4.20-5.40); White Blood Cell (WBC) Count 7.2 10x3/uL (4.8-10.8)
[2022-11-10 16:00] LABS: ALT (SGPT) 174 U/L (8-55); AST (SGOT) 309 U/L (5-34); Albumin 3.8 g/dL (3.5-5.0); Alkaline Phosphatase 64 U/L (40-110); Anion Gap 10 mmol/L (10-20); BUN (Urea Nitrogen) 11 mg/dL (7.0-18.7); Bilirubin, Total 0.3 mg/dL (0.2-1.2); Calc. Creatinine Clearance 0 mL/min (70-130); Calcium 9.2 mg/dL (7.8-10.44); Carbon Dioxide 27 mmol/L (22-29); Chloride 108 mmol/L (98-107); Estimated GFR 66; Globulin 2.3 g/dL (2.4-3.5); Glucose 81 mg/dL (70-105); Potassium 3.6 mmol/L (3.5-5.1); Protein, Total 6.1 g/dL (6.0-8.3); Sodium 141 mmol/L (136-145)
== END 2022-11-10 16:55 | disposition home or self-care (01) ==
LOC: ERS 14:48
DX: N12 Tubulo-interstitial nephritis, not specified as acute or chronic (principal); R74.8 Abnormal levels of other serum enzymes
CPT/HCPCS: 36415; 80053; 81003; 81015; 85025; 87086; 94760; 99284

== ENCOUNTER 2022-12-30 14:21 | Emergency (ER) | payer SELFPAY ==
[2022-12-30 15:23] LABS: Bilirubin Small (Negative); Blood, Urine Negative (Negative); Glucose, Urine (Dipstick) 100 mg/dL (Negative); Ketone, Urine Negative (Negative); Leukocyte Trace (Negative); Nitrite Positive (Negative); Protein, Urine (Dipstick) 100 mg/dL (Neg-Trace); Specific Gravity, Urine 1.025 (1.005-1.030)
[2022-12-30 15:36] LABS: Clarity Hazy (Clear)
[2022-12-30 15:47] LABS: Bacteria/HPF 4+ HPF (None Seen); WBC/HPF 21-50 HPF (0-3)
== END 2022-12-30 16:07 | disposition home or self-care (01) ==
LOC: ERS 14:21
DX: N39.0 Urinary tract infection, site not specified (principal)
CPT/HCPCS: 81003; 81015; 99283

== ENCOUNTER 2023-01-31 16:20 | Emergency (ER) | payer SELFPAY | END 2023-01-31 18:56 | disposition home or self-care (01) | LOC: ERS 16:20 | DX: F60.0 Paranoid personality disorder (principal); F19.10 Other psychoactive substance abuse, uncomplicated | CPT/HCPCS: 74022 ==

== ENCOUNTER 2023-03-03 08:12 | Emergency (ER) | payer BC, SELFPAY ==
[2023-03-03 08:52] LABS: Bacteria/HPF 4+ HPF (None Seen); Bilirubin Negative (Negative); Blood, Urine Negative (Negative); Clarity Turbid (Clear); Glucose, Urine (Dipstick) Normal (Negative); Ketone, Urine Negative (Negative); Leukocyte 250 Leu/uL (Negative); Nitrite Negative (Negative); Protein, Urine (Dipstick) 20 mg/dL (Neg-Trace); RBC/HPF 0-3 HPF (0-3); Specific Gravity, Urine 1.021 (1.002-1.036); Urobilinogen 3 mg/dL (Less than 2); WBC/HPF Greater than 50 HPF (0-3)
== END 2023-03-03 09:05 | disposition home or self-care (01) ==
LOC: ERS 08:12
DX: N39.0 Urinary tract infection, site not specified (principal)
CPT/HCPCS: 81003; 81015; 99283

== ENCOUNTER 2023-04-04 14:18 | Emergency (ER) | payer BC ==
[2023-04-04] MEDS ORDERED: Phenazopyridine HCl 100 MG TAB PO SCH (14:45)
[2023-04-04 14:57] LABS: Bacteria/HPF 2+ HPF (None Seen); Bilirubin Negative (Negative); Blood, Urine 1+ (Negative); Clarity Extra Turbid (Clear); Glucose, Urine (Dipstick) Normal (Negative); Ketone, Urine Negative (Negative); Leukocyte 500 Leu/uL (Negative); Nitrite Negative (Negative); Protein, Urine (Dipstick) 70 mg/dL (Neg-Trace); Specific Gravity, Urine 1.036 (1.002-1.036); WBC/HPF Greater than 50 HPF (0-3)
== END 2023-04-04 15:18 | disposition home or self-care (01) ==
LOC: ERS 14:18
DX: N39.0 Urinary tract infection, site not specified (principal); F17.220 Nicotine dependence, chewing tobacco, uncomplicated; F17.210 Nicotine dependence, cigarettes, uncomplicated
CPT/HCPCS: 81003; 81015; 87077; 87086; 87186; 99283

== ENCOUNTER 2023-08-10 09:25 | Emergency (ER) | payer BC, SELFPAY ==
[2023-08-10 10:51] LABS: Bacteria/HPF 3+ HPF (None Seen); Bilirubin Negative (Negative); Blood, Urine 1+ (Negative); CAUTI Indications for Culture Dysuria,urgency,freq; Clarity Turbid (Clear); Glucose, Urine (Dipstick) Normal (Negative); Ketone, Urine Negative (Negative); Leukocyte 500 Leu/uL (Negative); Nitrite Negative (Negative); Protein, Urine (Dipstick) 30 mg/dL (Neg-Trace); Squamous Epithelial 0-3 HPF (0-3); Urobilinogen Normal mg/dL (Less than 2); WBC/HPF Greater than 50 HPF (0-3); pH, Urine 6.5 (5.0-9.0)
[2023-08-10 10:53] LABS: Urine Culture Reflex Yes Yes
== END 2023-08-10 11:32 | disposition home or self-care (01) ==
LOC: ERS 09:25
DX: N39.0 Urinary tract infection, site not specified (principal); R30.0 Dysuria; F17.220 Nicotine dependence, chewing tobacco, uncomplicated
CPT/HCPCS: 81001; 87077; 87086; 87186; 99283

== ENCOUNTER 2023-10-23 15:07 | Emergency (ER) | payer BC, OTHER ==
[2023-10-23 15:52] LABS: #Eosinphils 0.1 thou/uL (0.0-0.7); #Monocytes 0.8 thou/uL (0.11-0.59); #Neutrophils 7.3 thou/uL (1.40-6.50); %Basophils 0.3 % (0.0-1.0); %Eosinophils 0.8 % (0.0-10.0); %Lymphocytes 16.6 % (21.0-51.0); %Monocytes 7.8 % (0.0-10.0); %Neutrophils 74.2 % (42.0-75.0); Hemoglobin 13.7 g/dL (12.0-16.0); Mean Corpuscular HGB CONC 35.1 g/dL (32.0-36.0); Mean Corpuscular Volume 88.2 fl (78.0-98.0); Mean Platelet Volume 9.5 fL (7.4-10.4); Platelet Count 368 10x3/uL (130-400); RBC Distribution Width 12.9 % (11.5-14.5); Red Blood Cell (RBC) Count 4.42 mill/uL (4.20-5.40); White Blood Cell (WBC) Count 9.8 10x3/uL (4.8-10.8)
[2023-10-23] MEDS ORDERED: Ondansetron PF 4 MG/2 ML Vial ONE (16:08)
[2023-10-23] MEDS ORDERED: Morphine 4 MG/ML VIAL ONE (16:08)
[2023-10-23 16:26] LABS: ALT (SGPT) 18 U/L (8-55); AST (SGOT) 18 U/L (5-34); Albumin 3.9 g/dL (3.5-5.0); Alkaline Phosphatase 54 U/L (40-110); Anion Gap 16 mmol/L (10-20); BUN (Urea Nitrogen) 12 mg/dL (7.0-18.7); Bilirubin, Total 0.7 mg/dL (0.2-1.2); Calc. Creatinine Clearance 0 mL/min (70-130); Calcium 9.4 mg/dL (7.8-10.44); Carbon Dioxide 23 mmol/L (22-29); Chloride 105 mmol/L (98-107); Estimated GFR 56; Globulin 2.1 g/dL (2.4-3.5); Glucose 98 mg/dL (70-105); Lipase 29 U/L (8-78); Sodium 140 mmol/L (136-145)
[2023-10-23 18:35] LABS: Bilirubin Negative (Negative); Blood, Urine Negative (Negative); CAUTI Indications for Culture Pelvic or flank pain; Clarity Clear (Clear); Glucose, Urine (Dipstick) Normal (Negative); Ketone, Urine 40 mg/dL (Negative); Leukocyte 500 Leu/uL (Negative); Nitrite Negative (Negative); Protein, Urine (Dipstick) Negative (Neg-Trace); RBC/HPF 0-3 HPF (0-3); Squamous Epithelial 0-3 HPF (0-3); pH, Urine 6.5 (5.0-9.0)
[2023-10-23 18:36] LABS: Bacteria/HPF 1+ HPF (None Seen)
[2023-10-23 18:37] LABS: Urine Culture Reflex Yes Yes
[2023-10-23 19:30] LABS: Amphetamine Detected (NotDetected); Barbiturates Screen Not Detected (NotDetected); Benzodiazepine Screen Not Detected (NotDetected); Cocaine Metabolite Screen Not Detected (NotDetected); Methadone Not Detected (NotDetected); Methamphetamine Detected (NotDetected); Opiate Screen Detected (NotDetected); Oxycodone Screen Not Detected (NotDetected); Phencyclidine (PCP) Not Detected (NotDetected); THC/Cannabinoid Screen Not Detected (NotDetected); Tricyclic Screen Not Detected (NotDetected)
[2023-10-23 19:42] LABS: Acetaminophen Less than 10 mcg/mL (10.0-30.0); Alcohol Less than 10.0 mg/dL (Less than 10); Salicylate Less than 8.0 mg/dL (15.0-30.0)
[2023-10-23 20:31] LABS: Pregnancy Test - Urine (BHCG) Negative (Negative); Pregu Control Background? CLEAR/WHITE (CLR/WHITE); Pregu Control Bar Appear? YES (CONTROL BAR)
[2023-10-23] MEDS ORDERED: cefTRIAXone (ROCEPHIN) 1 GM VIAL ONE (21:58)
[2023-10-23] MEDS ORDERED: Sodium Chloride 0.9% 100 ML ONE (21:58)
[2023-10-23] MEDS ORDERED: Cephalexin 250 MG CAP ONE (22:03)
== END 2023-10-23 22:35 ==
LOC: ERS 15:07
DX: N39.0 Urinary tract infection, site not specified (principal); R45.851 Suicidal ideations; F17.220 Nicotine dependence, chewing tobacco, uncomplicated; F17.210 Nicotine dependence, cigarettes, uncomplicated
CPT/HCPCS: 36415; 76705; 80053; 80306; 80307; 81001; 81025; 83690; 84443; 85025; 87086; 93005; 96361; 96374; 96375; J0696; J2270; J2405; J3490

== ENCOUNTER 2023-11-22 10:29 | Emergency (ER) | payer OTHER, SELFPAY ==
[2023-11-22 11:09] LABS: Bacteria/HPF None Seen HPF (None Seen); Bilirubin Negative (Negative); Blood, Urine Trace (Negative); CAUTI Indications for Culture Pelvic or flank pain; Clarity Clear (Clear); Glucose, Urine (Dipstick) Normal (Negative); Ketone, Urine Negative (Negative); Leukocyte 500 Leu/uL (Negative); Nitrite Negative (Negative); Protein, Urine (Dipstick) Negative (Neg-Trace); RBC/HPF 0-3 HPF (0-3); Specific Gravity, Urine 1.019 (1.002-1.036); Squamous Epithelial 0-3 HPF (0-3); Urobilinogen Normal mg/dL (Less than 2); WBC/HPF Greater than 50 HPF (0-3); pH, Urine 5.5 (5.0-9.0)
[2023-11-22 11:25] LABS: Urine Culture Reflex Yes Yes
== END 2023-11-22 11:53 | disposition home or self-care (01) ==
LOC: ERS 10:29
DX: N39.0 Urinary tract infection, site not specified (principal); F17.210 Nicotine dependence, cigarettes, uncomplicated; F17.220 Nicotine dependence, chewing tobacco, uncomplicated
CPT/HCPCS: 81001; 87077; 87086; 87186; 99283

== ENCOUNTER 2024-04-19 15:29 | Emergency (ER) | payer OTHER ==
[2024-04-19] MEDS ORDERED: Phenazopyridine HCl 100 MG TAB ONE (15:50)
[2024-04-19 16:06] LABS: Bacteria/HPF 2+ HPF (None Seen); Bilirubin Negative (Negative); Blood, Urine 1+ (Negative); CAUTI Indications for Culture Dysuria,urgency,freq; Clarity Turbid (Clear); Glucose, Urine (Dipstick) Normal (Negative); Ketone, Urine Negative (Negative); Leukocyte 500 Leu/uL (Negative); Nitrite Negative (Negative); Protein, Urine (Dipstick) 20 mg/dL (Neg-Trace); Specific Gravity, Urine 1.021 (1.002-1.036); Urobilinogen Normal mg/dL (Less than 2); WBC/HPF Greater than 50 HPF (0-3); pH, Urine 5.5 (5.0-9.0)
[2024-04-19 16:09] LABS: Urine Culture Reflex Yes Yes
== END 2024-04-19 16:18 | disposition home or self-care (01) ==
LOC: ERS 15:29
DX: N30.01 Acute cystitis with hematuria (principal); Z87.891 Personal history of nicotine dependence
CPT/HCPCS: 81001; 87077; 87086; 87186; 99284

== ENCOUNTER 2024-08-18 08:39 | Emergency (ER) | payer OTHER ==
[2024-08-18 09:15] LABS: Bacteria/HPF 3+ HPF (None Seen); Bilirubin Negative (Negative); Blood, Urine Trace (Negative); CAUTI Indications for Culture Pelvic or flank pain; Clarity Extra Turbid (Clear); Glucose, Urine (Dipstick) Normal (Negative); Ketone, Urine Negative (Negative); Leukocyte 500 Leu/uL (Negative); Nitrite Negative (Negative); Protein, Urine (Dipstick) 30 mg/dL (Neg-Trace); WBC/HPF Greater than 50 HPF (0-3)
[2024-08-18 09:23] LABS: Squamous Epithelial 0-3 HPF (0-3); Transitional Epithelial 0-3 HPF (None Seen)
[2024-08-18 09:24] LABS: Urine Culture Reflex Yes Yes
[2024-08-18] MEDS ORDERED: Lidocaine 1% PF 5 ML VIAL ONE (09:46)
[2024-08-18] MEDS ORDERED: Phenazopyridine HCl 100 MG TAB ONE (09:46)
[2024-08-18] MEDS ORDERED: cefTRIAXone (ROCEPHIN) 500 MG VIAL ONE (09:46)
== END 2024-08-18 10:12 | disposition home or self-care (01) ==
LOC: ERS 08:39
DX: N39.0 Urinary tract infection, site not specified (principal)
CPT/HCPCS: 81001; 87077; 87086; 87186; 96372; 99283; J0696

== ENCOUNTER 2024-10-31 09:00 | Emergency (ER) | payer OTHER ==
[2024-10-31 09:45] LABS: Bacteria/HPF Rare-Few HPF (None Seen); Bilirubin Negative (Negative); Blood, Urine Negative (Negative); CAUTI Indications for Culture Dysuria,urgency,freq; Clarity Clear (Clear); Glucose, Urine (Dipstick) Normal (Negative); Ketone, Urine Negative (Negative); Leukocyte 75 Leu/uL (Negative); Nitrite Negative (Negative); Protein, Urine (Dipstick) Negative (Neg-Trace); RBC/HPF 0-3 HPF (0-3); Specific Gravity, Urine 1.015 (1.002-1.036); Squamous Epithelial 0-3 HPF (0-3); Urobilinogen Normal mg/dL (Less than 2); WBC/HPF 21-50 HPF (0-3)
[2024-10-31 09:47] LABS: Urine Culture Reflex Yes Yes
== END 2024-10-31 10:11 | disposition home or self-care (01) ==
LOC: ERS 09:00
DX: N39.0 Urinary tract infection, site not specified (principal); Z87.891 Personal history of nicotine dependence
CPT/HCPCS: 81001; 87077; 87086; 87480; 87510; 87660; 99283